=== PATIENT | female | born 1950 | race Caucasian/White ===

== ENCOUNTER 2021-12-18 21:35 | Emergency (ER) | payer OTHER ==
[~2021-12-18] VITALS: Ht 170.2 cm; Wt 74.8 kg
--- NOTE | 2021-12-18 21:41 | NUR ---
Dr. Parikh at bedside. Pt bib ra for c/o possible allergic reaction states she ate shrimp at [facility]. pt able to speak in complete sentences states she is not short of breath.
[2021-12-18] MEDS ORDERED: diphenhydrAMINE 50 MG/1 ML VIAL ONE (21:57)
[2021-12-18] MEDS ORDERED: methylPREDNISolone SOD SUCC 125 MG/2 ML VIAL ONE (21:58)
[2021-12-18] MEDS ORDERED: FAMOTIDINE. 20 MG/2 ML VIAL IV ONE ×2 (21:59→22:00)
[2021-12-18] MEDS ORDERED: IV NORMAL SALINE 500 ML BAG IV ONE (22:00)
[2021-12-18] MEDS ORDERED: methylPREDNISolone SOD SUCC 125 MG/2 ML VIAL IV ONE (22:00)
[2021-12-18] MEDS ORDERED: diphenhydrAMINE 50 MG/1 ML VIAL IV ONE (22:00)
[2021-12-18 22:21] LABS: HEMATOCRIT 42.7 % (31.2-41.9); MEAN CORPUSCULAR HEMOGLOBIN 30.6 uug (24.7-32.8); MEAN CORPUSCULAR VOLUME 91.2 fL (75.5-95.3); PLATELET COUNT (AUTO) 257 K/uL (179-408)
[2021-12-18 22:34] LABS: BILIRUBIN,DIRECT 0.2 mg/dL (0.0-0.2); BILIRUBIN,TOTAL 0.5 mg/dL (0.2-1.0); CREATININE 0.9 mg/dL (0.6-1.3); POTASSIUM 3.3 mmol/L (3.5-5.1); TOTAL PROTEIN, SERUM 6.4 g/dL (6.4-8.2)
--- NOTE | 2021-12-18 23:22 | NUR ---
pt states she feels better that her tongue does not feel swollen and is able to swallow without difficulty.
[2021-12-19] MEDS ORDERED: PRED20TA PO (00:53)
[2021-12-19 01:17] VITALS: BP 122/66
--- NOTE | 2021-12-19 01:17 | NUR ---
Patient discharged to home in stable condition. Written and verbal after care instructions given. Patient verbalizes understanding of instructions. Stressed follow up or return to ER for worsening s/s.
== END 2021-12-19 01:39 | disposition home or self-care (01) ==
LOC: ER 21:38
DX: T78.1XXA Other adverse food reactions, not elsewhere classified, initial encounter (principal); X58.XXXA Exposure to other specified factors, initial encounter; E78.5 Hyperlipidemia, unspecified; H46.9 Unspecified optic neuritis
CPT/HCPCS: 36415; 80048; 80076; 85025; 96361; 96374; 96375; 99284; J1200; J2930; J3490; A4663; J7040